=== PATIENT | female | born 2000 | race Caucasian/White ===

== ENCOUNTER → 2020-01-22 | Outpatient (CLI) | payer OTHER ==
[~2020-01-22] MED LIST: GADOTERATE 7.5 MMOL/15ML VIAL. IVP ONE
--- NOTE | 2020-01-22 13:20 | KCIC ---
MRI of the Brain/Pituitary Gland without and with Contrast 01/22/2020 Clinical History: Elevated prolactin. Technique: Unenhanced T1-weighted sagittal and axial and FLAIR, T2-weighted, gradient echo and diffusion-weighted axial images of the brain were obtained. Thin section T1-weighted sagittal and coronal and T2 weighted coronal images through the pituitary gland were obtained. After the intravenous administration of 12cc of Clariscan, enhanced T1-weighted axial and coronal images of the brain were obtained. Additionally thin section T1-weighted sagittal and coronal and dynamic enhanced T1-weighted coronal images through the pituitary gland were obtained. Findings: No previous imaging studies are available for comparison. The ventricles and sulci are within normal limits in size and configuration. No area of abnormal signal intensity is seen involving the brain parenchyma. No abnormal area of contrast enhancement is seen. No extra-axial fluid collection is noted. There is no MRI evidence of acute ischemia/infarction. Images through the pituitary gland demonstrate a faint rounded area of diminished contrast enhancement involving the left aspect of the anterior lobe of the pituitary gland. This measures 4 mm in diameter. 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 No extension to involve the suprasellar cistern or cavernous sinus is seen. No additional abnormality of the pituitary gland is noted. Mild mucosal thickening in seen scattered throughout the paranasal sinuses. A 1.3 cm mucous retention cyst is seen involving the right maxillary sinus. There are minimal bilateral mastoid effusions. Normal flow voids are seen within the major vascular structures surrounding the brain parenchyma. 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 Electronically signed by: Buzz Reyes MD (01/22/2020 1:17 PM) [place] [id number]
== END ==
LOC: KCIC MRI 09:59
PROVIDERS: ATTEND Obstetrics & Gynecology
DX: E22.1 Hyperprolactinemia (principal); J34.1 Cyst and mucocele of nose and nasal sinus
CPT/HCPCS: 70553; A9575